=== PATIENT | male | born 1960 | race Caucasian/White ===

== ENCOUNTER 2022-11-10 13:58 | Outpatient (CLI) | payer BC, SELFPAY | END 2022-11-10 13:59 | disposition home or self-care (01) | PROVIDERS: Visit Provider Surgery | DX: E11.621 Type 2 diabetes mellitus with foot ulcer (principal); E11.40 Type 2 diabetes mellitus with diabetic neuropathy, unspecified; L97.522 Non-pressure chronic ulcer of other part of left foot with fat layer exposed; L97.511 Non-pressure chronic ulcer of other part of right foot limited to breakdown of skin; Z79.4 Long term (current) use of insulin; Z79.84 Long term (current) use of oral hypoglycemic drugs | CPT/HCPCS: 11042; 97597; 99203 ==

== ENCOUNTER 2022-11-17 13:55 | Outpatient (CLI) | payer BC, SELFPAY | END 2022-11-17 13:56 | disposition home or self-care (01) | LOC: WOUND 13:55 | PROVIDERS: Visit Provider Surgery | DX: E11.621 Type 2 diabetes mellitus with foot ulcer (principal); L97.522 Non-pressure chronic ulcer of other part of left foot with fat layer exposed; L97.511 Non-pressure chronic ulcer of other part of right foot limited to breakdown of skin; Z79.4 Long term (current) use of insulin; Z79.84 Long term (current) use of oral hypoglycemic drugs | CPT/HCPCS: 97597 ==

== ENCOUNTER 2022-11-24 13:52 | Outpatient (CLI) | payer BC, SELFPAY | END 2022-11-24 13:53 | disposition home or self-care (01) | LOC: WOUND 13:52 | PROVIDERS: Visit Provider Surgery | DX: E11.621 Type 2 diabetes mellitus with foot ulcer (principal); E11.40 Type 2 diabetes mellitus with diabetic neuropathy, unspecified; L97.522 Non-pressure chronic ulcer of other part of left foot with fat layer exposed; L97.511 Non-pressure chronic ulcer of other part of right foot limited to breakdown of skin; Z79.4 Long term (current) use of insulin | CPT/HCPCS: 97597 ==

== ENCOUNTER 2022-12-08 13:57 | Outpatient (CLI) | payer BC, SELFPAY | END 2022-12-08 13:58 | disposition home or self-care (01) | LOC: WOUND 13:57 | PROVIDERS: Visit Provider Surgery | DX: E11.621 Type 2 diabetes mellitus with foot ulcer (principal); L97.522 Non-pressure chronic ulcer of other part of left foot with fat layer exposed; Z79.4 Long term (current) use of insulin | CPT/HCPCS: 11042 ==

== ENCOUNTER 2022-12-22 14:02 | Outpatient (CLI) | payer BC, SELFPAY | END 2022-12-22 14:03 | disposition home or self-care (01) | LOC: WOUND 14:02 | PROVIDERS: Visit Provider Surgery | DX: E11.621 Type 2 diabetes mellitus with foot ulcer (principal); E11.40 Type 2 diabetes mellitus with diabetic neuropathy, unspecified; L97.522 Non-pressure chronic ulcer of other part of left foot with fat layer exposed; Z79.4 Long term (current) use of insulin | CPT/HCPCS: 97597 ==

== ENCOUNTER 2023-01-05 14:27 | Outpatient (CLI) | payer MEDICARE, BC, SELFPAY | END 2023-01-05 14:28 | disposition home or self-care (01) | LOC: WOUND 14:31 | PROVIDERS: Visit Provider Family Medicine | DX: E11.621 Type 2 diabetes mellitus with foot ulcer (principal); E11.40 Type 2 diabetes mellitus with diabetic neuropathy, unspecified; L97.522 Non-pressure chronic ulcer of other part of left foot with fat layer exposed; L97.511 Non-pressure chronic ulcer of other part of right foot limited to breakdown of skin; Z79.4 Long term (current) use of insulin | CPT/HCPCS: 11042; 97597 ==

== ENCOUNTER 2023-01-19 14:22 | Outpatient (CLI) | payer MEDICARE, BC, SELFPAY | END 2023-01-19 14:23 | disposition home or self-care (01) | LOC: WOUND 14:22 | PROVIDERS: Visit Provider Surgery | DX: E11.621 Type 2 diabetes mellitus with foot ulcer (principal); E11.40 Type 2 diabetes mellitus with diabetic neuropathy, unspecified; L97.522 Non-pressure chronic ulcer of other part of left foot with fat layer exposed; Z79.4 Long term (current) use of insulin | CPT/HCPCS: 97597 ==

== ENCOUNTER 2023-02-02 14:20 | Outpatient (CLI) | payer MEDICARE, BC, SELFPAY ==
[2023-02-02 16:09] LABS: Basophils Absolute Auto 0.03 K/uL (0.00-0.30); Basophils Percent Auto 0.4 % (0.0-3.0); Eosinophils Absolute Auto 0.18 K/uL (0.00-0.50); Eosinophils Percent Auto 2.5 % (0.0-7.0); Hematocrit 46.9 % (37.0-53.0); Hemoglobin* 14.3 gm/dL (13.5-17.5); Immature Granulocytes Abs Auto 0.01 K/uL (0.00-0.30); Immature Granulocytes Pct Auto 0.1 %; Lymphocytes Absolute Auto 1.67 K/uL (0.90-2.90); Lymphocytes Percent Auto 22.9 % (20-44); Mean Corpuscular HGB Conc 31 gm/dL (32-36); Mean Corpuscular Hemoglobin 25 pg (26-34); Mean Corpuscular Volume 81 fL (80-100); Monocytes Percent Auto 8.4 % (0.0-11.0); Neutrophils Absolute Auto 4.78 K/uL (1.7-7.0); Neutrophils Percent Auto 65.7 % (42.0-72.0); Platelet Count* 295 K/uL (140-440); White Blood Count* 7.28 K/uL (4.50-11.00)
[2023-02-02 16:17] LABS: Slide Review Reflex No
[2023-02-02 16:25] LABS: C Reactive Protein* 2.9 mg/dL (0.5-1.0)
== END 2023-02-02 14:21 | disposition home or self-care (01) ==
LOC: WOUND 14:21
PROVIDERS: Visit Provider Surgery
DX: E11.621 Type 2 diabetes mellitus with foot ulcer (principal); E11.40 Type 2 diabetes mellitus with diabetic neuropathy, unspecified; L97.528 Non-pressure chronic ulcer of other part of left foot with other specified severity; Z79.4 Long term (current) use of insulin
CPT/HCPCS: 36415; 73620; 85025; 86140; 97597; 99212

== ENCOUNTER 2023-02-02 15:36 | Outpatient (CLI) | payer BC, MEDICARE, SELFPAY ==
--- NOTE | 2023-02-02 16:15 | CRLHL7_ITS ---
For Patients: As a result of the Cures Act, medical imaging exams and procedure reports are released immediately into your electronic medical record. You may view this report before your referring provider. If you have questions, please contact your health care provider. Indication: Nonhealing ulcer of the great toe. Technique: Left foot 2 views. Comparison: None. Findings: Bones: Questionable lucent lesions in the proximal 5th and 4th metatarsals. No other suspicious lesions to suggest osteomyelitis. No fractures or other osseous abnormalities. There are hammertoe deformities. Joint spaces: Unremarkable. Soft tissues: Unremarkable soft tissues. No sign of soft tissue gas. Dictated by Andrzej Marquez MD @ 02/04/2023 10:29:19 AM (Electronically Signed)
== END 2023-02-02 15:37 | disposition home or self-care (01) ==
LOC: RAD 15:37
PROVIDERS: Visit Provider Surgery
DX: E11.621 Type 2 diabetes mellitus with foot ulcer (principal)
CPT/HCPCS: 36415; 73620; 85025; 86140